=== PATIENT | female | born 1985 | race Caucasian/White ===

== ENCOUNTER 2016-11-13 12:09 | Emergency (ER) | payer OTHER ==
[~2016-11-13] VITALS: Wt 90.7 kg
[~2016-11-13 12:09] MED LIST: ACYCLOVIR800 MG PO; ALEVE220 MG PO; AMOXICILLIN500 M2 PO; AMOXICILLIN500 M3 PO; AMOXICILLIN500 MG PO; AMOXIL500 M1 PO; ANTIVERT/2525 MG PO; ANUSOL-HC25 MG RC; ARIPIPRAZOLE5 MG PO; ATARAX25 MG PO; ATIVAN0.5 MG PO; AUGMENTIN 875875 MG PO; BRIN20TA PO; CATAPRES0.1 MG PO; CEPHALEXIN500 M1 PO; CHERATUSSIN AC120 ML PO; CIPRO500 MG PO; CIPROFLOXACIN500 MG PO; CLARITIN10 MG PO; COREG12.5 MG PO; COREG25 MG PO; COREG6.25 MG PO; DAYPRO600 M1 PO; DIFLUCAN150 MG PO; EFFEXOR XR75 M1 PO; EFFEXOR25 MG; HYDROCODONE BIT1 T11 PO; IBU800 M1 PO; IBUPROFEN 30 M800 MG PO; KEFLEX500 MG PO; KLONOPIN1 M1 PO; LATU40TA1 PO; LISINOPRIL AND1 TA2 PO; LISINOPRIL20 MG PO; MIRTAZAPINE15 M2 PO; MOTRIN400 MG PO; MOTRIN600 MG PO; MOTRIN800 MG PO; Miralax Powder255 GM PO; NAPROSYN500 MG PO; NEURONTIN300 MG PO; NKHM; NORCO 325 MG-51 TAB PO; NORCO 5-325 TA1 EACH PO; PHENERGAN25 M1 PO; PREDNICOT10 MG PO; PREDNISONE10 MG PO; PREDNISONE20 MG PO; PROCTOFOAM 1%10 G1 PO; PYRIDIUM200 MG PO; REXULTI2 MG PO; SERTRALINE50 MG PO; VALTREX500 MG PO; VICODIN 5/500 505 MG PO; VITAMIN D50000 I3 PO; XANAX1 MG PO; ZITHROMAX Z PA250 MG PO; ZOFRAN4 MG PO; ZOVIRAX800 MG PO; [UNRECOGNIZED DRUG - OTHER]
[2016-11-13] MEDS ORDERED: NORCO 5-325 TA1 EACH PO (12:57)
[2016-11-13] MEDS ORDERED: ZOVIRAX400 MG PO (12:57)
== END 2016-11-13 13:02 | disposition home or self-care (01) ==
LOC: ED 12:09
DX: B02.9 Zoster without complications (principal); F14.10 Cocaine abuse, uncomplicated; F17.200 Nicotine dependence, unspecified, uncomplicated

== ENCOUNTER 2016-11-16 19:18 | Emergency (ER) | payer OTHER ==
[~2016-11-16] VITALS: Ht 172.7 cm; Wt 86.2 kg
[~2016-11-16 19:18] MED LIST changes: +ZOVIRAX400 MG PO
[2016-11-16] MEDS ORDERED: NEURONTIN300 MG PO (20:14)
[2016-11-16] MEDS ORDERED: LIDEX 0.05% CRE15 GM T (20:40)
== END 2016-11-16 22:41 | disposition home or self-care (01) ==
LOC: ED 19:18
DX: B02.9 Zoster without complications (principal); F17.200 Nicotine dependence, unspecified, uncomplicated; F12.10 Cannabis abuse, uncomplicated

== ENCOUNTER 2017-05-22 14:04 | Emergency (ER) | payer OTHER ==
[~2017-05-22] VITALS: Ht 172.7 cm; Wt 86.2 kg
[~2017-05-22 14:04] MED LIST changes: +LIDEX 0.05% CRE15 GM T
[2017-05-22] MEDS ORDERED: ZOVIRAX800 MG PO (14:21)
== END 2017-05-22 14:31 | disposition home or self-care (01) ==
LOC: ED 14:04
DX: B02.9 Zoster without complications (principal); F17.200 Nicotine dependence, unspecified, uncomplicated

== ENCOUNTER 2017-07-27 09:08 | Emergency (ER) | payer OTHER ==
[~2017-07-27] VITALS: Ht 172.7 cm; Wt 81.6 kg
[2017-07-27] MEDS ORDERED: COREG25 MG PO (09:16)
[2017-07-27] MEDS ORDERED: LISINOPRIL-HCT1 EACH PO (09:17)
[2017-07-27] MEDS ORDERED: PENICILLIN-VK500 MG PO (10:09)
[2017-07-27] MEDS ORDERED: NORCO 5-325 TA1 EACH PO (10:19)
== END 2017-07-27 10:38 | disposition home or self-care (01) ==
LOC: ED 09:08
DX: K04.7 Periapical abscess without sinus (principal); F17.200 Nicotine dependence, unspecified, uncomplicated; Z79.899 Other long term (current) drug therapy

== ENCOUNTER 2017-08-05 16:23 | Emergency (ER) | payer OTHER ==
[~2017-08-05] VITALS: Wt 77.1 kg
[~2017-08-05 16:23] MED LIST changes: +LISINOPRIL-HCT1 EACH PO; +PENICILLIN-VK500 MG PO
[2017-08-05] MEDS ORDERED: CLINDAMYCIN HC300 MG PO (18:51)
== END 2017-08-05 19:02 | disposition home or self-care (01) ==
LOC: ED 16:23
DX: J02.9 Acute pharyngitis, unspecified (principal); F17.200 Nicotine dependence, unspecified, uncomplicated; F12.10 Cannabis abuse, uncomplicated; Z98.890 Other specified postprocedural states; Z79.899 Other long term (current) drug therapy

== ENCOUNTER 2017-10-05 09:13 | Emergency (ER) | payer OTHER ==
[~2017-10-05] VITALS: Ht 172.7 cm; Wt 86.2 kg
[~2017-10-05 09:13] MED LIST changes: +CLINDAMYCIN HC300 MG PO
[2017-10-05 09:42] LABS: BASO % 0.3 % (0.0-1.0); EOS # 0.2 10*3/uL (0.0-0.4); EOS % 1.7 % (1.0-4.0); HEMATOCRIT 42.7 % (37.0-47.0); HEMOGLOBIN 14.5 g/dl (12.0-16.0); LYMPH # 1.7 10*3/uL (1.3-4.4); LYMPH % 15.9 % (27.0-41.0); MEAN CELL VOLUME 87.1 fl (81.0-99.0); MEAN CORPUSCULAR HGB 29.6 pg (27.0-31.0); MEAN PLATELET VOLUME 9.4 fl (9.6-12.3); MONO # 0.6 10*3/uL (0.1-1.0); MONO % 5.2 % (3.0-9.0); NEUT # 8.3 10*3/uL (2.3-7.9); NEUT % 76.6 % (47.0-73.0); PLATELET COUNT AUTOMATED 330 10*3/uL (130-400); RED CELL DISTRI WIDTH 14.3 % (0-14.5); WHITE BLOOD COUNT 10.8 10*3/uL (4.8-10.8)
[2017-10-05 09:51] LABS: BILIRUBIN NEGATIVE (NEGATIVE); BLOOD NEGATIVE (NEGATIVE); CLARITY CLOUDY (CLEAR); COLOR YELLOW (YELLOW); GLUCOSE NEGATIVE (NEGATIVE); KETONE TRACE (NEGATIVE); LEUKO ESTERASE NEGATIVE (NEGATIVE); NITRITE NEGATIVE (NEGATIVE); SPECIFIC GRAVITY 1.025 (1.005-1.030)
[2017-10-05 09:58] LABS: ALBUMIN 4.2 gm/dl (3.1-4.5); ALKALINE PHOSPHATASE 107 U/L (45-117); BUN 10 mg/dl (7-24); CHLORIDE 110 mmol/L (98-107); CREATININE 0.94 mg/dL (0.55-1.02); LIPASE 223 U/L (73-393); SGOT/AST 6 IU/L (3-35); SGPT/ALT 22 U/L (12-78); SODIUM 144 mmol/L (136-145); TOTAL PROTEIN 7.9 gm/dL (6.4-8.2)
[2017-10-05 10:00] LABS: BACTERIA 3+; EPITHELIAL CELLS 40-45; WBC 0-2 wbc/hpf (0-5)
== END 2017-10-05 12:14 | disposition home or self-care (01) ==
LOC: ED 09:13
PROVIDERS: Nurse Practitioner Family
DX: R10.9 Unspecified abdominal pain (principal); R11.2 Nausea with vomiting, unspecified; Z79.899 Other long term (current) drug therapy

== ENCOUNTER 2018-07-03 09:05 | Emergency (ER) | payer OTHER ==
[~2018-07-03] VITALS: Ht 172.7 cm; Wt 90.7 kg
[2018-07-03] MEDS ORDERED: PENICILLIN VK500 MG PO (09:19)
[2018-07-03] MEDS ORDERED: NAPROSYN500 MG PO (09:19)
== END 2018-07-03 09:59 | disposition home or self-care (01) ==
LOC: ED 09:05
DX: K04.7 Periapical abscess without sinus (principal); I10 Essential (primary) hypertension; F17.200 Nicotine dependence, unspecified, uncomplicated; Z79.899 Other long term (current) drug therapy

== ENCOUNTER 2020-09-20 21:14 | Emergency (ER) | payer OTHER ==
[~2020-09-20] VITALS: Ht 172.7 cm; Wt 86.2 kg
[~2020-09-20 21:14] MED LIST changes: +PENICILLIN VK500 MG PO
[2020-09-20] MEDS ORDERED: Tobrex Ophth S2.5 ML OPH (22:02)
[2020-09-20] MEDS ORDERED: PREDNISONE20 M1 PO (22:02)
== END 2020-09-20 22:06 | disposition home or self-care (01) ==
LOC: ED 21:14
DX: H10.211 Acute toxic conjunctivitis, right eye (principal); F17.200 Nicotine dependence, unspecified, uncomplicated; Z79.899 Other long term (current) drug therapy; Z98.890 Other specified postprocedural states

== ENCOUNTER 2022-03-15 16:17 | Emergency (ER) | payer OTHER ==
[~2022-03-15] VITALS: Wt 78.0 kg
[~2022-03-15 16:17] MED LIST changes: +PREDNISONE20 M1 PO; +Tobrex Ophth S2.5 ML OPH
[2022-03-15 17:15] LABS: BILIRUBIN 1+ (Negative); BLOOD Negative (Negative); CLARITY Cloudy (Clear); COLOR Dark Yellow (Yellow); GLUCOSE Negative (Negative); KETONE Negative (Negative); LEUKO ESTERASE Negative (Negative); NITRITE Negative (Negative); UROBILINOGEN 0.2 E.U./dl (0.0-1.0)
[2022-03-15 17:18] LABS: BASO % 0.5 % (0.0-1.0); EOS # 0.2 10*3/uL (0.0-0.4); EOS % 1.8 % (1.0-4.0); HEMATOCRIT 43.9 % (37.0-47.0); LYMPH # 2.6 10*3/uL (1.3-4.4); LYMPH % 29.4 % (27.0-41.0); MEAN CELL VOLUME 86.8 fl (81.0-99.0); MEAN CORPUSCULAR HGB 29.4 pg (27.0-31.0); MEAN CORPUSCULAR HGB CONC 33.9 g/dl (33.0-37.0); MEAN PLATELET VOLUME 9.9 fl (9.6-12.3); MONO # 0.7 10*3/uL (0.1-1.0); MONO % 7.5 % (3.0-9.0); NEUT # 5.3 10*3/uL (2.3-7.9); NEUT % 60.6 % (47.0-73.0); PLATELET COUNT AUTOMATED 328 10*3/uL (130-400); RED BLOOD COUNT 5.06 10*6/uL (4.10-5.10); RED CELL DISTRI WIDTH 13.7 % (0-14.5); WHITE BLOOD COUNT 8.8 10*3/uL (4.8-10.8)
[2022-03-15 17:20] LABS: MUCOUS 2+
[2022-03-15 17:21] LABS: BACTERIA 3+; WBC 0-2 wbc/hpf (0-5)
[2022-03-15 17:22] LABS: HYALINE CAST 0-2
[2022-03-15 17:36] LABS: ALKALINE PHOSPHATASE 98 U/L (46-116); BUN 12 mg/dl (9-23); CHLORIDE 102 mmol/L (98-107); CREATININE 0.82 mg/dL (0.55-1.02); POTASSIUM 3.3 mmol/L (3.4-5.1); SGPT/ALT 9 U/L (10-49); SODIUM 139 mmol/L (136-145); TOTAL PROTEIN 7.2 gm/dL (6.0-8.0)
[2022-03-15] MEDS ORDERED: PYRIDIUM200 M1 PO (18:10)
[2022-03-15] MEDS ORDERED: OMNICEF300 MG PO (18:10)
== END 2022-03-15 20:24 | disposition home or self-care (01) ==
LOC: ED 16:17
PROVIDERS: Student in an Organized Health Care Education/Training Program
DX: N39.0 Urinary tract infection, site not specified (principal); N20.1 Calculus of ureter; Z79.899 Other long term (current) drug therapy; Z98.890 Other specified postprocedural states; Z90.49 Acquired absence of other specified parts of digestive tract

== ENCOUNTER 2022-12-22 17:36 | Emergency (ER) | payer OTHER ==
[~2022-12-22] VITALS: Ht 172.7 cm; Wt 81.6 kg
[~2022-12-22 17:36] MED LIST changes: +OMNICEF300 MG PO; +PYRIDIUM200 M1 PO
[2022-12-22] MEDS ORDERED: CLINDAMYCIN HC300 MG PO (18:06)
== END 2022-12-22 20:21 | disposition home or self-care (01) ==
LOC: ED 17:36
DX: K08.89 Other specified disorders of teeth and supporting structures (principal); Z98.890 Other specified postprocedural states; F12.10 Cannabis abuse, uncomplicated; Z72.0 Tobacco use